=== PATIENT | female | born 1975 | race Two or more races ===

== ENCOUNTER 2018-08-15 20:51 | Emergency (ER) | payer SELFPAY ==
[2018-08-15 20:54] VITALS: BP 141/44; PULSE 84; TEMP 98.3; BMI 23.8
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
[2018-08-15] MEDS ORDERED: NAPROXEN 500 MG TABLET (FP) PO ONE (21:44)
[2018-08-15] MEDS ORDERED: NAPROXEN 500 MG TABLET (FP) ONE (21:50)
== END 2018-08-15 23:18 | disposition home or self-care (01) ==
LOC: JERFT 20:51
DX: M25.512 Pain in left shoulder (principal); M25.552 Pain in left hip; V03.10XA Pedestrian on foot injured in collision with car, pick-up truck or van in traffic accident, initial encounter; Y92.414 Local residential or business street as the place of occurrence of the external cause; Y93.89 Activity, other specified; Y99.8 Other external cause status
CPT/HCPCS: 72170-TC-FY; 73030-TC-LT-FY; 99281-25